=== PATIENT | female | born 1985 | race Caucasian/White ===

== ENCOUNTER 2017-12-01 18:43 | Emergency (ER) | payer MEDICAID, OTHER ==
[2017-12-01] MEDS: IBUPROFEN 600 MG TAB PO (21:02)
== END 2017-12-01 21:40 | disposition home or self-care (01) ==
LOC: FTE 18:43
DX: J02.9 Acute pharyngitis, unspecified (principal); R50.9 Fever, unspecified; R51 Headache
CPT/HCPCS: 99283; Z7502

== ENCOUNTER 2018-01-10 22:21 | Emergency (ER) | payer SELFPAY, MEDICAID | END 2018-01-11 03:33 | disposition left against medical advice (07) | LOC: FTE 22:21 | DX: Z53.21 Procedure and treatment not carried out due to patient leaving prior to being seen by health care provider (principal) ==